=== PATIENT | male | born 2000 | race African-American/Black ===

== ENCOUNTER 2022-03-21 17:47 | Emergency (ER) | payer SELFPAY ==
[2022-03-21] MEDS ORDERED: Pantoprazole 40 MG VIAL ONE (19:28)
[2022-03-21] MEDS ORDERED: Dicyclomine 20 MG TAB ONE (19:29)
[2022-03-21 19:52] LABS: #Basophils 0.1 10x3/uL (0.0-0.2); #Eosinphils 0.4 10x3/uL (0.0-0.5); #Monocytes 0.5 10x3/uL (0.0-1.1); %Eosinophils 7.5 % (0.0-6.0); %Lymphocytes 22.8 % (18.0-47.0); %Monocytes 10.4 % (0.0-10.0); %Neutrophils 58.1 % (40.0-75.0); Hemoglobin 15.6 g/dL (13.5-17.5); Mean Corpuscular HGB CONC 34.1 g/dL (32.0-36.0); Mean Corpuscular Hemoglobin 29.9 pg (27.0-33.0); Mean Corpuscular Volume 87.7 fl (81.2-95.1); Mean Platelet Volume 11.1 fl (7.4-10.4); Platelet Count 276 10x3/uL (150-450); RBC Distribution Width 13.2 % (11.5-14.5); Red Blood Cell (RBC) Count 5.21 10x6/uL (4.32-5.72); White Blood Cell (WBC) Count 5.2 10x3/uL (3.5-10.5)
[2022-03-21 20:05] LABS: ALT (SGPT) 46 U/L (8-55); AST (SGOT) 33 U/L (10-45); Albumin 4.5 g/dL (3.5-5.0); Alkaline Phosphatase 91 U/L (50-130); Anion Gap 13 mmol/L (10-20); BUN (Urea Nitrogen) 21 mg/dL (8.4-21.0); Bilirubin, Total 0.3 mg/dL (0.2-1.2); Calc. Creatinine Clearance 0 mL/min (70-130); Carbon Dioxide 27 mmol/L (22-29); Chloride 104 mmol/L (98-107); Estimated GFR 128; Globulin 3.3 g/dL (2.4-3.5); Glucose 85 mg/dL (70-105); Lipase 23 U/L (8-78); Potassium 4.2 mmol/L (3.5-5.1); Protein, Total 7.8 g/dL (6.0-8.3); Sodium 140 mmol/L (136-145)
[2022-03-21 20:38] LABS: Bilirubin Neg (Negative); Blood, Urine Negative (Negative); Clarity Cloudy (Clear); Glucose, Urine (Dipstick) Normal (Negative); Ketone, Urine Negative (Negative); Leukocyte Negative (Negative); Nitrite Negative (Negative); Protein, Urine (Dipstick) Negative (Neg-Trace); Specific Gravity, Urine 1.015 (1.005-1.030); Urobilinogen Normal mg/dL (Less than 2)
== END 2022-03-21 21:30 | disposition home or self-care (01) ==
LOC: CSHERS 17:47
DX: K29.70 Gastritis, unspecified, without bleeding (principal)
CPT/HCPCS: 76705; 80053; 81003; 83690; 85025; 93005; 96361; 96374; C9113